=== PATIENT | male | born 1945 | race Two or more races ===

== ENCOUNTER 2023-11-26 04:39 | Emergency (ER) | payer OTHER ==
[~2023-11-26] VITALS: Ht 170.2 cm; Wt 90.7 kg
[2023-11-26] MEDS ORDERED: RINGERS SOLUTION,LACTATED 1,000 ML IV STA (05:55)
[2023-11-26] MEDS ORDERED: MEPERIDINE HCL/PF 25 MG/ML VIAL IM STA (05:55)
[2023-11-26] MEDS ORDERED: PROMETHAZINE HCL 50 MG/ML AMPUL IM STA (05:56)
[2023-11-26] MEDS ORDERED: HYOSCYAMINE SULFATE 0.125 MG TAB.SUBL SL ONE (06:00)
[2023-11-26 08:09] LABS: HEMATOCRIT 47.1 % (39.0-48.0); HEMOGLOBIN 16.6 g/dL (13-16.00); MEAN CORPUSCULAR HEMOGLOBIN 30.6 pg (27.00-32.0); MEAN CORPUSCULAR HGB CONC 35.2 g/dl (32.0-36.0); PLATELET COUNT 230 K/uL (150-450); RED BLOOD COUNT 5.42 M/uL (4.00-6.00); RED CELL DISTRIBUTION WIDTH 14.1 % (11.5-14.5)
[2023-11-26 08:23] LABS: INR 1.01; PARTIAL THROMBOPLASTIN TIME 30.5 SECONDS (22.0-34.0)
[2023-11-26 08:40] LABS: ALBUMIN 3.9 gm/dL (3.4-5.0); BILIRUBIN TOTAL 0.68 mg/dL (0.3-1.2); CALCIUM 9.5 mg/dL (8.5-10.1); CREATININE SERUM 1.01 mg/dL (0.70-1.30); GFR 71.44; GLOBULINA 3.5 G/DL (2.4-3.5); POTASSIUM 3.88 mEq/L (3.5-5.1); TOTAL PROTEIN 7.4 gm/dL (6.4-8.2)
[2023-11-26 09:08] LABS: PH,URINE 5.5 (5.0-8.0); URINE APPEARANCE Clear; URINE BILIRRUBIN Negative (NEGATIVE); URINE BLOOD Negative; URINE COLOR Yellow; URINE GLUCOSE Negative (NEGATIVE); URINE KETONE Negative (NEGATIVE); URINE LEUKOCYTE Negative; URINE NITRATE Negative; URINE PROTEIN Negative (NEGATIVE); URINE UROBILINOGEN 0.2 E.U./dl
[2023-11-26 09:33] LABS: URINE CAST 0.15 uL (0.0-1.40); URINE EPITHELIAL CELLS 1.3 uL (0.0-38.8); URINE RBC 1.6 uL (0.0-20.8); URINE WBC 0.9 uL (0.0-23.2)
== END 2023-11-26 10:27 | disposition home or self-care (01) ==
LOC: ER 04:41
DX: R10.32 Left lower quadrant pain (principal)
CPT/HCPCS: 36415; 74177; 96372; J2250; J3490; Q9965